=== PATIENT | male | born 2000 | race Caucasian/White ===

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

== ENCOUNTER 2021-04-19 10:54 | Emergency (ER) | payer BC ==
[2021-04-19 11:12] VITALS: RESP 18; TEMP 98.1
[2021-04-19] MEDS ORDERED: KETOROLAC 15 MG/ML 1 ML VIAL IVP STA (11:21)
[2021-04-19 11:39] LABS: Basophils # (A) 0.1 k/uL (0-0.2); Basophils % (A) 1 %; Eosinophils # (A) 0.1 k/uL (0-0.7); Eosinophils % (A) 1 %; HGB 16.3 gm/dL (13.0-17.5); Lymphocytes # (A) 2.5 k/uL (1.0-4.8); Lymphocytes % (A) 29 %; MCV 82.3 fL (80.0-100.0); Mean Platelet Volume 7.9; Monocytes # (A) 0.5 k/uL (0-1.0); Monocytes % (A) 5 %; Neutrophils # (A) 5.4 k/uL (1.3-7.7); Neutrophils % (A) 63 %; Platelet Count 208 k/uL (150-450); RBC 5.83 m/uL (4.30-5.90); RDW 13.2 % (11.5-15.5); WBC 8.6 k/uL (4.0-11.0)
[2021-04-19 11:55] LABS: ALT 95 U/L (4-49); AST 48 U/L (17-59); African American GFR (CKD) >90 (>60 ml/min/1.73 sqM); Alkaline Phosphatase 104 U/L (38-126); Anion Gap 9 mmol/L; Blood Urea Nitrogen 9 mg/dL (9-20); Calcium 10.1 mg/dL (8.4-10.2); Carbon Dioxide 28 mmol/L (22-30); Chloride 103 mmol/L (98-107); Glucose 131 mg/dL (74-99); Non-African American GFR(CKD) >90 (>60 ml/min/1.73 sqM); Potassium 4.6 mmol/L (3.5-5.1); Sodium 140 mmol/L (137-145); Total Bilirubin 0.9 mg/dL (0.2-1.3); Total Protein 8.1 g/dL (6.3-8.2)
--- NOTE | 2021-04-19 12:19 | CT ---
EXAMINATION TYPE: CT abdomen pelvis wo/w con DATE OF EXAM: 04/19/2021 COMPARISON: None INDICATION: Possible splenic injury DLP: 2595.5 mGycm, Automated exposure control for dose reduction was used. CONTRAST: 100 mL of Isovue 300. Study performed without Oral Contrast TECHNIQUE: Axial images were obtained from above the diaphragm to the pubic rami in the axial plane a t 5 mm thick sections. Reconstructed images are reviewed on the computer in the coronal plane. FINDINGS: Limited CT sections are obtained the lung bases. The lung bases are clear. CT ABDOMEN: Liver: Normal Spleen: Normal. No suspicious changes to suggest lacerations, fractures, or pericapsular hematomas ar e evident. Pancreas: Normal Adrenal glands: The adrenal glands are normal. Gallbladder: Normal Kidneys: No masses are evident. No hydronephrosis is present. No cysts are present. Delayed images were obtained through the kidneys, which remain unremarkable. Aorta: Normal Inferior vena cava: Normal. CT PELVIS: Loops of bowel within the abdomen and pelvis are normal. Study is performed without oral contrast limiting bowel evaluation. Appendix: Normal as visualized. Urinary bladder: Normal. Genitourinary structures: Prostate is normal Osseous structures: No suspicious lytic or sclerotic lesions. IMPRESSIONS: 1. Normal CT abdomen and pelvis. 2. No suspicious changes for acute or subacute splenic injury evident.
--- NOTE | 2021-04-19 12:30 | ED ---
Abdominal Pain HPI - General Chief Complaint: Abdominal Pain Stated Complaint: Abd pain/Fall Time Seen by Provider: 04/19/21 11:13 Source: patient, RN notes reviewed Mode of arrival: ambulatory Limitations: no limitations - History of Present Illness Initial Comments: Patient is a 21-year-old male that presents to the emergency department complaining of abdominal pain just inferior the left margin of his ribs are he notes that he did fall in the shower 3 days ago landing on his elbow and ribs. He notes the pain started shortly after. He noted a call his primary care and went to the urgent care and they both said come emergency room to get a CT of the abdomen and pelvis to look for splenic lacerations or injury. Patient did note that deep breaths did make the pain mildly worse. Patient did not appear to be in any distress or pain while sitting up during the exam interview. He noted that he did have point tenderness to one of his inferior lower ribs on the lateral aspect. Patient denied any intra-abdominal history he was a well-appearing well-hydrated 21-year-old male. He denied any chest pain shortness of breath headache nausea vomiting diarrhea constipation fever fatigue chills. - Related Data Allergies Allergy/AdvReac Type Severity Reaction Status Date / Time cefaclor [From [facility]] Allergy Anaphylaxis Verified 04/19/21 11:07 Review of Systems ROS Statement: Those systems with pertinent positive or pertinent negative responses have been documented in the HPI. ROS Other: All systems not noted in ROS Statement are negative. Past Medical History Past Medical History: No Reported History History of Any Multi-Drug Resistant Organisms: None Reported Past Surgical History: Hernia Repair Past Psychological History: ADD/ADHD Smoking Status: Never smoker Past Alcohol Use History: None Reported Past Drug Use History: None Reported General Exam Limitations: no limitations General appearance: alert, in no apparent distress, obese Head exam: Present: atraumatic, normocephalic, normal inspection Eye exam: Present: normal appearance, PERRL, EOMI. Absent: scleral icterus, conjunctival injection, periorbital swelling Neck exam: Present: normal inspection Respiratory exam: Present: normal lung sounds bilaterally. Absent: respiratory distress, wheezes, rales, rhonchi, stridor Cardiovascular Exam: Present: regular rate, normal rhythm, normal heart sounds. Absent: systolic murmur, diastolic murmur, rubs, gallop, clicks GI/Abdominal exam: Present: soft, normal bowel sounds, other (Point tenderness to moderate palpation over the last rib on the left side.). Absent: distended, tenderness, guarding, rebound, rigid Extremities exam: Present: normal inspection, full ROM, normal capillary refill. Absent: tenderness, pedal edema, joint swelling, calf tenderness Neurological exam: Present: alert, oriented X3 Psychiatric exam: Present: normal affect, normal mood Course Vital Signs 04/19/21 11:07 Temperature 98.1 F Pulse Rate 81 Respiratory 18 Rate Blood Pressure 129/83 O2 Sat by Pulse 99 Oximetry Medical Decision Making - Medical Decision Making 21-year-old male complaining of left-sided lower rib/abdominal pain after falling in the bath/shower 3 days ago. Labs, CT of the abdomen and pelvis per his doctor and urgent care doctors request. 15 mg of Toradol ordered for pain control. Labs unremarkable. CT imaging negative for any acute process or splenic lacerations fractures. Case discussed with Dr. Wallis, patient can discharge home with follow-up to primary care. - Lab Data Result diagrams: 04/19/21 11:33 04/19/21 11:33 Lab Results 04/19/21 04/19/21 Range/Units 11:33 11:33 WBC 8.6 (4.0-11.0) k/uL RBC 5.83 (4.30-5.90) m/uL Hgb 16.3 (13.0-17.5) gm/dL Hct 48.0 (39.0-53.0) % MCV 82.3 (80.0-100.0) fL MCH 28.0 (25.0-35.0) pg MCHC 34.0 (31.0-37.0) g/dL RDW 13.2 (11.5-15.5) % Plt Count 208 (150-450) k/uL MPV 7.9 Neutrophils % 63 % Lymphocytes % 29 % Monocytes % 5 % Eosinophils % 1 % Basophils % 1 % Neutrophils # 5.4 (1.3-7.7) k/uL Lymphocytes # 2.5 (1.0-4.8) k/uL Monocytes # 0.5 (0-1.0) k/uL Eosinophils # 0.1 (0-0.7) k/uL Basophils # 0.1 (0-0.2) k/uL Sodium 140 (137-145) mmol/L Potassium 4.6 (3.5-5.1) mmol/L Chloride 103 (98-107) mmol/L Carbon Dioxide 28 (22-30) mmol/L Anion Gap 9 mmol/L BUN 9 (9-20) mg/dL Creatinine 0.91 (0.66-1.25) mg/dL Est GFR (CKD-EPI)AfAm >90 (>60 ml/min/1.73 sqM) Est GFR (CKD-EPI)NonAf >90 (>60 ml/min/1.73 sqM) Glucose 131 H (74-99) mg/dL Calcium 10.1 (8.4-10.2) mg/dL Total Bilirubin 0.9 (0.2-1.3) mg/dL AST 48 (17-59) U/L ALT 95 H (4-49) U/L Alkaline Phosphatase 104 (38-126) U/L Total Protein 8.1 (6.3-8.2) g/dL Albumin 5.0 (3.5-5.0) g/dL - Radiology Data Radiology results: report reviewed, image reviewed CT of the abdomen and pelvis: Normal CT abdomen and pelvis. No suspicious changes for acute or subacute splenic injury evident. Disposition Clinical Impression: Rib contusion Disposition: HOME SELF-CARE Condition: Stable Instructions (If sedation given, give patient instructions): Rib Contusion (ED) Additional Instructions: Please return to the Emergency Department if symptoms worsen or any other concerns. Follow-up with primary care as needed. Take Tylenol and/or Motrin as needed for pain control. Is patient prescribed a controlled substance at d/c from ED?: No Referrals: Toy Hdez MD [Primary Care Provider] - 1-2 days Time of Disposition: 12:37
[2021-04-19 12:38] LABS: Appearance,Urine Clear (Clear); Bilirubin,Urine Negative (Negative); Blood,Urine Negative (Negative); Color,Urine Yellow; Glucose,Urine (UA) Negative (Negative); Ketones,Urine Negative (Negative); Leukocyte Esterase,Urine Negative (Negative); Nitrite,Urine Negative (Negative); Protein,Urine Trace (Negative); Urobilinogen,Urine <2.0 mg/dL (<2.0)
[2021-04-19 12:43] LABS: Specific Gravity,Urine >1.050 (1.001-1.035)
[2021-04-19 12:44] VITALS: BP 118/78; PULSE 64
== END 2021-04-19 12:44 | disposition home or self-care (01) ==
LOC: EC 10:54
DX: S20.212A Contusion of left front wall of thorax, initial encounter (principal); E66.9 Obesity, unspecified; Z68.36 Body mass index [BMI] 36.0-36.9, adult; Z88.1 Allergy status to other antibiotic agents; W18.2XXA Fall in (into) shower or empty bathtub, initial encounter
CPT/HCPCS: 36415; 80053; 85025; 81003; 74178; 96374; 99284; J1885; Q9967

== ENCOUNTER → 2021-05-19 | Outpatient (CLI) | payer BC ==
[2021-05-19 16:59] LABS: Appearance,Urine Clear (Clear); Bilirubin,Urine Negative (Negative); Blood,Urine Negative (Negative); Color,Urine Yellow; Glucose,Urine (UA) Negative (Negative); Ketones,Urine Negative (Negative); Leukocyte Esterase,Urine Negative (Negative); Nitrite,Urine Negative (Negative); PH, Urine 6.5 (5.0-8.0); Protein,Urine Negative (Negative); Specific Gravity,Urine 1.021 (1.001-1.035); Urobilinogen,Urine <2.0 mg/dL (<2.0)
[2021-05-19 23:08] LABS: Basophils # (A) 0.05 X 10*3/uL (0.00-0.10); Basophils % (A) 0.5 %; Eosinophils % (A) 1.1 %; HCT 48.1 % (39.6-50.0); HGB 16.1 g/dL (13.0-17.0); Lymphocytes # (A) 2.94 X 10*3/uL (0.90-5.00); Lymphocytes % (A) 31.5 %; MCH 27.9 pg (27.0-32.0); MCHC 33.5 g/dL (32.0-37.0); MCV 83.2 fL (80.0-97.0); Mean Platelet Volume 11.5 fL (9.5-12.2); Monocytes # (A) 0.71 X 10*3/uL (0.20-1.00); Monocytes % (A) 7.6 %; Neutrophils # (A) 5.51 X 10*3/uL (1.80-7.70); Platelet Count 216 X 10*3/uL (140-440); RBC 5.78 X 10*6/uL (4.40-5.60); RDW 12.6 % (11.5-14.5); WBC 9.34 X 10*3/uL (4.50-10.00)
[2021-05-20 02:09] LABS: Albumin 4.9 g/dL (3.80-4.90); Albumin/Globulin Ratio 1.75 (1.60-3.17); Anion Gap 11.9 mmol/L (4.00-12.00); C Reactive Protein, High Sens 3.65 mg/L (0.000-3.000); Calcium 9.8 mg/dL (8.7-10.3); Carbon Dioxide 25.1 mmol/L (21.6-31.8); Chol/HDL Ratio 5.51; Globulin 2.8 g/dL (1.6-3.3); LDL Cholesterol,Calculated 126.6 mg/dL (0.0-131.0); Non-African American GFR(CKD) 107.9 (60.0-200.0); Potassium 4.2 mmol/L (3.5-5.5); Total Bilirubin 1.1 mg/dL (0.3-1.2); Total Protein 7.7 g/dL (6.2-8.2); VLDL Calculation 49.4 mg/dL (5.00-40.00)
[2021-05-20 05:19] LABS: Hepatitis A Antibody IgM Non-Reactive (Non-Reactive); Hepatitis B Core IgM Non-Reactive (Non-Reactive); Hepatitis B Surface Antigen Non-Reactive (Non-Reactive); Hepatitis C IgG Antibody Non-Reactive (Non-Reactive)
== END | disposition home or self-care (01) ==
LOC: LABWHC1 15:50
PROVIDERS: ATTEND Family Medicine
DX: Z13.220 Encounter for screening for lipoid disorders (principal); R74.01 Elevation of levels of liver transaminase levels; R53.82 Chronic fatigue, unspecified
CPT/HCPCS: 36415; 80053; 80061; 80074; 81003; 82306; 82607; 82977; 84403; 84443; 85025; 86141

== ENCOUNTER 2021-07-15 01:59 | Emergency (ER) | payer BC ==
[2021-07-15 02:24] VITALS: TEMP 98.3
[2021-07-15 04:05] VITALS: RESP 18
[2021-07-15] MEDS ORDERED: METOCLOPRAMIDE 10 MG TAB PO STA (04:13)
[2021-07-15] MEDS ORDERED: IBUPROFEN 400 MG TAB PO STA (04:13)
--- NOTE | 2021-07-15 04:35 | ED ---
Headache HPI - General Chief Complaint: Headache Stated Complaint: Head Pain Time Seen by Provider: 07/15/21 04:03 Mode of arrival: ambulatory Limitations: no limitations - History of Present Illness MD Complaint: headache Onset/Timin -: hour(s) Onset Description: sudden Location: right, occipital Severity: severe Quality: aching, worst headache of life Consistency: constant Improves With: nothing Worsens With: none Context: occurred at rest Treatments Prior to Arrival: none - Related Data Allergies Allergy/AdvReac Type Severity Reaction Status Date / Time cefaclor [From [facility]] Allergy Anaphylaxis Verified 07/15/21 02:24 Review of Systems ROS Statement: Those systems with pertinent positive or pertinent negative responses have been documented in the HPI. ROS Other: All systems not noted in ROS Statement are negative. Constitutional: Denies: fever, chills, weakness Eyes: Denies: eye pain, vision change ENT: Denies: ear pain, hearing loss Respiratory: Denies: cough Cardiovascular: Denies: chest pain, palpitations Gastrointestinal: Denies: abdominal pain, vomiting Skin: Denies: rash Neurological: Reports: as per HPI, headache. Denies: weakness, numbness, confusion, vertigo Past Medical History Past Medical History: No Reported History History of Any Multi-Drug Resistant Organisms: None Reported Past Surgical History: Hernia Repair Past Psychological History: ADD/ADHD Smoking Status: Never smoker Past Alcohol Use History: None Reported Past Drug Use History: None Reported General Exam Limitations: no limitations General appearance: alert, in no apparent distress Head exam: Present: atraumatic, normocephalic Eye exam: Present: normal appearance, PERRL, EOMI. Absent: scleral icterus, conjunctival injection, nystagmus ENT exam: Present: normal oropharynx Neck exam: Present: normal inspection, full ROM Back exam: Present: normal inspection. Absent: tenderness Neurological exam: Present: alert, oriented X3, CN II-XII intact. Absent: motor sensory deficit Skin exam: Present: warm, dry, intact, normal color. Absent: rash Course Vital Signs 07/15/21 07/15/21 02:22 04:03 Temperature 98.3 F Pulse Rate 91 84 Respiratory 20 18 Rate Blood Pressure 148/89 148/95 O2 Sat by Pulse 97 98 Oximetry Disposition Clinical Impression: Headache Disposition: HOME SELF-CARE Condition: Good Instructions (If sedation given, give patient instructions): Acute Headache (ED) Is patient prescribed a controlled substance at d/c from ED?: No Referrals: Toy Hdez MD [Primary Care Provider] - 1-2 days
--- NOTE | 2021-07-15 04:51 | CT ---
EXAMINATION TYPE: CT brain wo con DATE OF EXAM: 07/15/2021 COMPARISON: None HISTORY: [place] CT DLP: 1080.4 mGycm Automated exposure control for dose reduction was used. Ventricles have normal size. There is no mass effect nor midline shift. There is no sign of intracran ial hemorrhage. Calvarium is intact. There is normal aeration of the mastoid sinuses. There is no sig n of cerebral edema. IMPRESSION: Negative unenhanced head CT scan.
[2021-07-15 05:47] VITALS: BP 143/95; PULSE 58
== END 2021-07-15 05:47 | disposition home or self-care (01) ==
LOC: EC 01:59
DX: R51.9 Headache, unspecified (principal); F90.9 Attention-deficit hyperactivity disorder, unspecified type
CPT/HCPCS: 70450; 99284

== ENCOUNTER → 2022-08-09 | Outpatient (CLI) | payer OTHER ==
[2022-08-09 14:31] LABS: Basophils # (A) 0.06 X 10*3/uL (0.00-0.10); Basophils % (A) 0.8 %; Eosinophils # (A) 0.14 X 10*3/uL (0.04-0.35); Eosinophils % (A) 1.8 %; HCT 48.1 % (39.6-50.0); Immature Grans, Automated 0.1 %; Lymphocytes # (A) 2.96 X 10*3/uL (0.90-5.00); Lymphocytes % (A) 38.3 %; MCH 28.3 pg (27.0-32.0); MCHC 33.3 g/dL (32.0-37.0); MCV 85.1 fL (80.0-97.0); Mean Platelet Volume 11.3 fL (9.5-12.2); Monocytes # (A) 0.54 X 10*3/uL (0.20-1.00); NRBC Per 100 WBC 0 /100 WBCS (0.0-0.0); Neutrophils # (A) 4.02 X 10*3/uL (1.80-7.70); Platelet Count 215 X 10*3/uL (140-440); RBC 5.65 X 10*6/uL (4.40-5.60); RDW 12.9 % (11.5-14.5); WBC 7.73 X 10*3/uL (4.50-10.00)
[2022-08-09 14:46] LABS: Chol/HDL Ratio 5.59 Ratio; LDL Cholesterol,Calculated 152.6 mg/dL (0.0-131.0)
[2022-08-09 15:45] LABS: ALT 159 U/L (10-49); AST 71 U/L (14-35); African American GFR (CKD) 118.4 (60.0-200.0); Albumin 4.8 g/dL (3.8-4.9); Albumin/Globulin Ratio 1.49 (1.60-3.17); Alkaline Phosphatase 97 U/L (41-126); BUN/Creat Ratio 9.62 Ratio (12.00-20.00); Calcium 9.7 mg/dL (8.7-10.3); Carbon Dioxide 23.2 mmol/L (20.0-27.5); Chloride 103 mmol/L (96-109); Globulin 3.2 g/dL (1.6-3.3); Glucose 112 mg/dL (70-110); Non-African American GFR(CKD) 102.2 (60.0-200.0); Potassium 4.3 mmol/L (3.5-5.5); Sodium 139 mmol/L (135-145)
== END | disposition home or self-care (01) ==
LOC: LABWHC1 08:58
PROVIDERS: ATTEND Family Medicine
DX: E88.81 Metabolic syndrome and other insulin resistance (principal)
CPT/HCPCS: 36415; 80053; 80061; 83036; 83525; 84439; 84443; 85025